=== PATIENT | female | born 1970 | race Caucasian/White ===

== ENCOUNTER 2019-07-18 07:20 | Emergency (ER) | payer OTHER ==
[~2019-07-18] VITALS: Ht 172.7 cm; Wt 90.7 kg
[2019-07-18 08:15] LABS: BASOPHILS ABSOLUTE AUTO 0.07 K/mm3 (0.00-0.23); BASOPHILS PERCENT AUTO 1 % (0-2); EOSINOPHILS ABSOLUTE AUTO 0.33 K/mm3 (0.00-0.68); EOSINOPHILS PERCENT AUTO 2 % (0-6); Hematocrit 54.9 % (33.0-51.0); Hemoglobin 18.7 g/dL (11.5-16.0); IMMATURE GRAN ABSOLUTE AUTO 0.06 K/mm3 (0.00-0.10); IMMATURE GRAN PERCENT AUTO 0 % (0-1); LYMPHOCYTES PERCENT AUTO 18 % (21-46); MONOCYTES ABSOLUTE AUTO 0.62 K/mm3 (0.16-1.47); MONOCYTES PERCENT AUTO 4 % (4-13); Mean Corpuscular HGB 30.9 pg (26.0-34.0); Mean Corpuscular HGB Conc 34.1 g/dL (31.5-36.5); Mean Corpuscular Volume 91 fL (80-100); Mean Platelet Volume 9.6 fL (9.1-12.4); NEUTROPHILS ABSOLUTE AUTO 10.55 K/mm3 (1.96-9.15); NEUTROPHILS PERCENT AUTO 75 % (41-73); Platelet Count 209 K/mm3 (150-400); RDW Standard Deviation 43.8 fL (35.1-46.3); Red Blood Cell Count 6.05 M/mm3 (3.80-5.20); White Blood Cell Count 14.13 K/mm3 (4.00-11.30)
[2019-07-18 08:37] LABS: Alanine Aminotransfer (ALT/SGP 31 U/L (12-78); Albumin, Blood 4.3 g/dL (3.4-5.0); Albumin/Globulin Ratio 1.1 (0.8-1.8); Alk Phos 100 U/L (50-136); Anion Gap 6 mmol/L (6-16); Aspartate Aminotrans (AST/SGOT 39 U/L (12-37); Blood Urea Nitrogen 26 mg/dL (8-24); Bun/Creatinine Ratio 37.5 (12.0-20.0); CO2, Blood 24 mmol/L (21-32); Calcium, Blood 9.7 mg/dL (8.5-10.1); Chloride, Blood 108 mmol/L (98-108); Creatinine, Blood 0.69 mg/dL (0.40-1.00); Globulin, Blood 3.8 g/dL (2.2-4.0); Glomerular Filtration Rate >60 (60-); Glucose, Blood 131 mg/dL (70-99); Potassium, Blood 5.1 mmol/L (3.5-5.5); Sodium, Blood 138 mmol/L (136-145); Total Protein, Blood 8.1 g/dL (6.4-8.2)
[2019-07-18 09:35] LABS: Bilirubin, Urine Neg (Neg); Blood, Urine 3+ (Neg); Glucose Qualitative, Urine Neg (Neg); Ketones, Urine 1+ (Neg); Leukocyte Esterase, Urine 1+ (Neg); Nitrite, Urine Neg (Neg); Protein, Urine 2+ (Neg); Urobilinogen, Urine NORM (Normal)
[2019-07-18 09:53] LABS: Appearance, Urine Hazy (Clear); Color, Urine Yellow (P-Yellow)
[2019-07-18 09:55] LABS: Bacteria Many /hpf; Squamous Epithelial Cells Few /hpf (Few)
[2019-07-18 09:56] LABS: Mucus Light (0-Heavy)
[2019-07-18] MEDS ORDERED: METO25ER PO (11:00)
[2019-07-18] MEDS ORDERED: ROXICODONE5 MG PO (11:01)
[2019-07-18] MEDS ORDERED: Fentanyl1 EACH TOP (11:01)
[2019-07-18] MEDS ORDERED: TRAZ50 PO (11:02)
[2019-07-18] MEDS ORDERED: GABA300 PO (11:02)
[2019-07-18] MEDS ORDERED: SUPER ENZYME C1 EACH (11:03)
[2019-07-18] MEDS ORDERED: TEMA15 PO (11:03)
[2019-07-18] MEDS ORDERED: CEFD300 PO (12:33)
[2019-07-18] MEDS ORDERED: Phenergan25 MG PR (12:33)
== END 2019-07-18 13:23 | disposition home or self-care (01) ==
LOC: ER 07:20
PROVIDERS: Emergency Medicine
DX: N20.0 Calculus of kidney (principal); K86.2 Cyst of pancreas; I10 Essential (primary) hypertension; J44.9 Chronic obstructive pulmonary disease, unspecified; I25.2 Old myocardial infarction; I42.9 Cardiomyopathy, unspecified; F17.210 Nicotine dependence, cigarettes, uncomplicated; Z88.2 Allergy status to sulfonamides; Z88.8 Allergy status to other drugs, medicaments and biological substances
CPT/HCPCS: 36415; 74176; 80053; 81001; 83690; 84484; 85025; 87077; 87086; 87186; 93005; 93010; 96374; 96375; 96376; 99284-25; J1170; J2060; J2405; J7030